=== PATIENT | male | born 1960 | race Caucasian/White ===

== ENCOUNTER 2023-04-15 18:27 | Emergency (ER) | payer OTHER ==
[~2023-04-15] VITALS: Ht 165.1 cm; Wt 127.0 kg
--- OUTSIDE RECORDS SUMMARY | 2023-04-15 18:34 | XMS ---
PreManage Notification: PETE GUZMAN Security Elevated Guard Events No recent Security Events currently on file CRITERIA MET - [facility] - 2 Visits in 30 Days CARE PROVIDERS There are no care providers on record at this time. Lakia has no Care Guidelines for this patient. Brittani VISIT COUNT (12 MO.) 1 [facility] Aditi Levine ([facility]) TOTAL 2 NOTE: Visits indicate total known visits. ED/[facility] [place] VISIT TRACKING (12 MO.) 04/15/2023 18:28 [facility] TYPE: Emergency COMPLAINT: - SHORTNESS OF BREATH 03/26/2023 18:21 [facility] Leonardo [facility]AUR ([place]) TYPE: Emergency DIAGNOSES: - Cellulitis, unspecified - Heart failure, unspecified - Cellulitis - Shortness of Breath - sob INPATIENT VISIT TRACKING (12 MO.) 03/26/2023 18:21 [facility] ([place]) TYPE: Medical Surgical DIAGNOSES: - Cellulitis, unspecified - Fluid overload, unspecified - Heart failure, unspecified - Obstructive sleep apnea (adult) (pediatric) - Other malaise - Other specified disorders of penis - Unspecified systolic (congestive) heart failure [email or web address]
[2023-04-15 19:06] LABS: BASOPHILS 0.3 % (0-2); EOSINOPHILS 0.3 % (0-6); HEMATOCRIT 44.9 % (35.0-50.0); HEMOGLOBIN 14.7 g/dL (12.0-18.0); LYMPHOCYTES 11.1 % (24-44); MCH 30.5 (27-36); MCHC 32.8 g/dl (30-36); MCV 92.8 fl (81-99); MONOCYTES 8.6 % (0-12); NEUTROPHILS 79.7 % (39-80); PLATELET COUNT 247 K/uL (140-440); RBC 4.84 M/ul (4.3-5.7); RDW 15.5 (10.5-15.0)
[2023-04-15 19:25] LABS: ALBUMIN 3.6 g/dL (3.4-5.0); ALCOHOL, MEDICAL <3 ng/dL (<3); ALKALINE PHOSPHATASE 164 U/L (46-116); ALT (SGPT) 407 U/L (14-59); ANION GAP 15.7 (7-21); AST (SGOT) 141 U/L (15-37); BILIRUBIN, TOTAL 1.7 ng/dL (0.2-1.0); BUN/CREATININE RATIO 36.59 (6.0-28.6); CALCIUM 8.3 mg/dL (8.5-10.1); CARBON DIOXIDE 24 mmol/L (21-32); CHLORIDE 89 mmol/L (98-107); CREATININE, SERUM 1.94 mg/dL (0.70-1.30); GLOMERULAR FILTRATION RATE,EST 38 mL/min (>60); POTASSIUM 3.7 mmol/L (3.5-5.1); PROTEIN, TOTAL 7.2 g/dL (6.4-8.2); UREA NITROGEN 71 mg/dL (7-18)
[2023-04-15 19:28] LABS: CREATINE KINASE 86 U/L (39-308)
[2023-04-15 19:55] LABS: LACTIC ACID, BLOOD 2.2 mmol/L (0.4-2.0)
[2023-04-15 20:25] LABS: INFLUENZA B NAA NEGATIVE (NEGATIVE); RESPIRATORY SYNCYTIAL VIR NAA NEGATIVE (NEGATIVE)
[2023-04-15 20:26] LABS: INR 1.21 (0.80-1.30); PROTIME 14.8 Sec (11.2-14.2)
[2023-04-15 20:28] LABS: PARTIAL THROMBOPLASTIN TIME 29.7 Sec (22.9-41.3)
[2023-04-15 20:49] LABS: BILIRUBIN, URINE NEGATIVE (negative); BLOOD/HGB, URINE MODERATE (Negative); KETONE, URINE NEGATIVE (Negative); LEUK ESTERASE, URINE NEGATIVE (negative); NITRITE, URINE NEGATIVE (negative); PH, URINE 5.5 (5-7)
[2023-04-15 20:55] LABS: CRYSTALS, URINE NONE SEEN (0-1+); EPITHELIAL CELLS, URINE SQUAMOUS 1+ /lpf (0-1+); RED BLOOD CELLS, URINE >50 /hpf (0-5); WHITE BLOOD CELLS, URINE 0-1 /HPF (0-5)
[2023-04-15 20:56] LABS: BACTERIA, URINE RARE /hpf (negative); CASTS, URINE NONE SEEN \\lpf; REFLEX CULTURE, URINE No (No)
[2023-04-15 21:24] LABS: AMPHETAMINES, URINE POSITIVE (NEGATIVE); BARBITURATES, URINE NEGATIVE (NEGATIVE); BENZODIAZEPINE, URINE NEGATIVE (NEGATIVE); BUPRENORPHINE, URINE NEGATIVE (NEGATIVE); CANNABINOID, URINE NEGATIVE (NEGATIVE); COCAINE, URINE NEGATIVE (NEGATIVE); ECSTASY, URINE NEGATIVE (NEGATIVE); FENTANYL, URINE NEGATIVE (NEGATIVE); OPIATES, URINE NEGATIVE (NEGATIVE); OXYCODONE, URINE NEGATIVE (NEGATIVE); PHENCYCLIDINE, URINE NEGATIVE (NEGATIVE)
[2023-04-16 00:19] VITALS: BP 94/65
--- NOTE | 2023-04-16 17:56 | EKG ---
[facility] [address] [facility] [place] [address] Signed Atrial flutter with 2:1 AV conduction Right axis deviation Septal infarct , age undetermined Abnormal ECG No previous ECGs available Confirmed by FLAKITO KHAN MD ([id number]) on 04/16/2023 5:56:42 PM Electronically Signed By: FLAKITO KHAN 04/16/23 1756 PATIENT NAME: PETE GUZMAN Electrocardiogram DATE OF : 58 PHYSICIAN: FLAKITO KHAN REPORT #: [id number] REPORT IS CONFIDENTIAL AND NOT TO BE RELEASED WITHOUT AUTHORIZATION
--- NOTE | 2023-04-16 17:57 | EKG ---
[facility] [address] [facility] [place] [address] Signed Atrial fibrillation with a competing junctional pacemaker Right axis deviation Septal infarct (cited on or before 15-APR-2023) Abnormal ECG When compared with ECG of 15-APR-2023 18:40, (Unconfirmed) Atrial fibrillation has replaced Atrial flutter ST no longer depressed in Inferior leads Confirmed by FLAKITO KHAN MD ([id number]) on 04/16/2023 5:56:59 PM Electronically Signed By: FLAKITO KHAN 04/16/23 1757 PATIENT NAME: PETE GUZMAN Electrocardiogram DATE OF : 58 PHYSICIAN: FLAKITO KHAN REPORT #: [id number] REPORT IS CONFIDENTIAL AND NOT TO BE RELEASED WITHOUT AUTHORIZATION
== END 2023-04-16 00:17 | disposition left against medical advice (07) ==
LOC: ED 18:27
PROVIDERS: Internal Medicine
DX: I50.9 Heart failure, unspecified (principal); R60.1 Generalized edema; I48.92 Unspecified atrial flutter; L03.116 Cellulitis of left lower limb; L03.115 Cellulitis of right lower limb; F17.200 Nicotine dependence, unspecified, uncomplicated; Z88.8 Allergy status to other drugs, medicaments and biological substances
CPT/HCPCS: 36415; 51702; 51798; 71045; 73590; 80053; 80307; 81001; 82553; 83605; 83880; 84484; 85025; 85610; 85730; 87502; 90715; 93005; 93010; 99285-25; G0480; J0696; J1940; U0002